=== PATIENT | male | born 1955 | race Caucasian/White ===

== ENCOUNTER 2017-09-27 17:41 | Emergency (ER) | payer OTHER ==
[~2017-09-27] VITALS: Ht 152.4 cm; Wt 54.4 kg
[2017-09-27 17:52] VITALS: Ht 152.4 cm; Wt 54.4 kg
[2017-09-27 20:10] VITALS: BP 153/95
== END 2017-09-27 20:10 | disposition home or self-care (01) ==
LOC: ED 17:41
DX: S80.11XA Contusion of right lower leg, initial encounter (principal); W50.1XXA Accidental kick by another person, initial encounter; Y93.89 Activity, other specified; Y92.89 Other specified places as the place of occurrence of the external cause; Y99.8 Other external cause status; I10 Essential (primary) hypertension
CPT/HCPCS: 90714; J2001

== ENCOUNTER 2017-09-29 12:56 | Emergency (ER) | payer OTHER ==
[~2017-09-29] VITALS: Ht 152.4 cm; Wt 59.0 kg
[2017-09-29 13:19] VITALS: Ht 152.4 cm; Wt 59.0 kg
[2017-09-29 14:07] VITALS: BP 165/97
== END 2017-09-29 14:07 | disposition home or self-care (01) ==
LOC: ED 12:56
DX: Z48.01 Encounter for change or removal of surgical wound dressing (principal)

== ENCOUNTER 2017-10-04 10:06 | Emergency (ER) | payer OTHER ==
[~2017-10-04] VITALS: Ht 152.4 cm; Wt 59.0 kg
[2017-10-04 10:14] VITALS: Ht 152.4 cm; Wt 59.0 kg
[2017-10-04 11:45] VITALS: BP 209/119
== END 2017-10-04 11:45 | disposition home or self-care (01) ==
LOC: ED 10:06
DX: S70.11XD Contusion of right thigh, subsequent encounter (principal); W55.22XD Struck by cow, subsequent encounter

== ENCOUNTER 2017-10-06 10:51 | Emergency (ER) | payer OTHER ==
[~2017-10-06] VITALS: Ht 152.4 cm; Wt 59.0 kg
[2017-10-06 11:08] VITALS: BP 217/117; Ht 152.4 cm; Wt 59.0 kg
== END 2017-10-06 11:38 | disposition home or self-care (01) ==
LOC: ED 10:51
DX: S70.12XD Contusion of left thigh, subsequent encounter (principal); W55.22XD Struck by cow, subsequent encounter

== ENCOUNTER 2017-10-11 09:33 | Emergency (ER) | payer OTHER ==
[~2017-10-11] VITALS: Ht 152.4 cm; Wt 57.1 kg
[2017-10-11 09:41] VITALS: Ht 152.4 cm; Wt 57.1 kg
[2017-10-11 11:37] VITALS: BP 149/92
== END 2017-10-11 11:37 | disposition home or self-care (01) ==
LOC: ED 09:33
DX: Z48.00 Encounter for change or removal of nonsurgical wound dressing (principal); I10 Essential (primary) hypertension

== ENCOUNTER 2017-11-04 11:22 | Emergency (ER) | payer OTHER ==
[~2017-11-04] VITALS: Ht 154.9 cm; Wt 60.3 kg
[2017-11-04 11:30] VITALS: Ht 154.9 cm; Wt 60.3 kg
[2017-11-04 12:36] VITALS: BP 185/109
== END 2017-11-04 12:36 | disposition home or self-care (01) ==
LOC: ED 11:22
DX: M24.811 Other specific joint derangements of right shoulder, not elsewhere classified (principal); R03.0 Elevated blood-pressure reading, without diagnosis of hypertension
CPT/HCPCS: J1885

== ENCOUNTER 2018-01-23 08:46 | Emergency (ER) | payer OTHER ==
[~2018-01-23] VITALS: Ht 157.5 cm; Wt 57.6 kg
[2018-01-23 08:49] VITALS: Ht 157.5 cm; Wt 57.6 kg
[2018-01-23 11:46] VITALS: BP 138/92
== END 2018-01-23 11:46 | disposition home or self-care (01) ==
LOC: ED 08:46
DX: I10 Essential (primary) hypertension (principal); R91.1 Solitary pulmonary nodule; M25.511 Pain in right shoulder; Z87.828 Personal history of other (healed) physical injury and trauma
CPT/HCPCS: Q0092